=== PATIENT | female | born 1940 | race Caucasian/White ===

== ENCOUNTER 2017-03-31 11:00 | Outpatient (CLI) | payer MEDICARE, OTHER ==
[~2017-03-31] VITALS: Ht 170.2 cm; Wt 93.0 kg
[2017-03-31] MEDS ORDERED: CEPH500C PO (11:54)
[2017-03-31] MEDS ORDERED: BISO1TAB8 PO (11:54)
== END 2017-03-31 12:05 ==
LOC: PREOP 11:00
PROVIDERS: ATTEND Surgery
DX: Z01.818 Encounter for other preprocedural examination (principal); L98.9 Disorder of the skin and subcutaneous tissue, unspecified

== ENCOUNTER 2017-04-02 10:35 | Day surgery (SDC) | payer MEDICARE, OTHER ==
[~2017-04-02] VITALS: Ht 170.2 cm; Wt 93.0 kg
[~2017-04-02 10:35] MED LIST: BISO1TAB8 PO; CEPH500C PO
[2017-04-02] MEDS ORDERED: BUP/EPI 0.25% 1:200,000 (MARCAINE) 10 ML VIAL IJ ONE (10:38)
[2017-04-02] MEDS ORDERED: ceFAZolin 2 GM/NS 50 ML IV ONE (11:00)
[2017-04-02 11:12] VITALS: BP 150/74
--- NOTE | 2017-04-02 11:12 | Progress Note-Pre Operative ---
Pre-Operative Progress Note H&P Reviewed The H&P was reviewed, patient examined and no changes noted. Date Seen by Provider: Apr 02, 2017 Time Seen by Provider: 11:12 Date H&P Reviewed: Apr 02, 2017 Time H&P Reviewed: 11:12 Pre-Operative Diagnosis: SKIN LESION left side of neck JOSE ROBERTO GRANGER MD Apr 02, 2017 11:12 am
[2017-04-02] MEDS ORDERED: PROPOFOL INJECTION 50 ML IV ONE (11:17)
[2017-04-02] MEDS ORDERED: ONDANSETRON 4 MG/2 ML (SDV) Z0FRAN ONE (11:18)
[2017-04-02] MEDS ORDERED: DEXAMETHASONE PF 10 MG/ML (DECADRON) VIAL ONE (11:18)
[2017-04-02] MEDS ORDERED: FEXO-14 PO (11:29)
[2017-04-02] MEDS ORDERED: MULT-974 PO (11:29)
[2017-04-02] MEDS ORDERED: fentaNYL INJECTION 100 MCG/2 ML AMP ONE (12:34)
[2017-04-02] MEDS ORDERED: MIDAZOLAM 2 MG/2 ML (VERSED) VIAL ONE (12:34)
[2017-04-02] MEDS ORDERED: LACTATED RINGERS 1,000 ML IV SCH (12:45)
--- NOTE | 2017-04-02 13:08 | Operative Report ---
Operative Report Date of Procedure/Surgery Apr 02, 2017 Surgeon (s) JOSE ROBERTO GRANGER MD Journeyman Painter (s): Not applicable Post-Operative Diagnosis Same Procedure Performed Excision of skin lesion left side of neck Description of Procedure Anesthesia Type: MAC Estimated blood loss (mL): Minimal Specimen(s) collected/removed skin lesion Description of the Procedure Indication for procedure: This lady presented with an irregular and raised lesion over the left side of her neck requiring histologic confirm She was offered excision under monitored conditions. Informed consent was obtained after reviewing the procedure in detail. Description of the procedure: She was placed supine on the operating table and our [employer] administered sedation. Ancef was administered intravenous against wound infection. Left side of the neck was prepared and draped in the usual sterile manner. Local anesthesia was achieved using Marcaine with epinephrine. An elliptical incision, 1.5 cm long was made and the lesion excised down to the subcutaneous tissue.The incision was then closed using 4-0 Vicryl in a subcuticular fashion. Steri-Strips were then applied. She tolerated the procedure well and was taken to the recovery room in a stable condition Findings of the Procedure please read the operative report Allergies and Home Medications Allergies Coded Allergies: No Known Drug Allergies (Unverified , 03/31/17) Home Medications Bisoprolol Fumarate/Hctz 1 Each Tablet, 1 EACH PO DAILY, (Reported) Fexofenadine HCl 60 Mg Tablet, 60 MG PO DAILY, (Reported) Multivitamin 1 Each Tablet, 1 EACH PO DAILY, (Reported) JOSE ROBERTO GRANGER MD Apr 02, 2017 1:08 pm
--- NOTE | 2017-04-02 13:09 | Discharge Inst-Simple/Standard ---
Discharge Inst-Standard Discharge Medications New, Converted or Re-Newed RX: Other Patient Instructions/Follow Up Plan of Care/Instructions/FU: May use Tylenol or ibuprofen for pain.. We shall call with pathology results. No sutures to be removed Activity as Tolerated: Yes Discharge Diet: No Restrictions JOSE ROBERTO GRANGER MD Apr 02, 2017 1:09 pm
[2017-04-02 13:40] VITALS: BP 166/72
[2017-04-02 14:10] VITALS: BP 166/72
== END 2017-04-02 14:10 | disposition home or self-care (01) ==
LOC: SDC 10:35
PROVIDERS: ATTEND Surgery
DX: L82.1 Other seborrheic keratosis (principal); I10 Essential (primary) hypertension; E78.5 Hyperlipidemia, unspecified; Z79.899 Other long term (current) drug therapy
CPT/HCPCS: 87081; 88305